=== PATIENT | female | born 1970 | race Caucasian/White ===

== ENCOUNTER 2020-10-17 15:45 | Emergency (ER) | payer OTHER, SELFPAY ==
[2020-10-17 16:00] VITALS: BP 159/93; PULSE 75; RESP 20; TEMP 37.1; O2SAT 99
[2020-10-17] MEDS: TETANUS,DIPHTHERIA,AC PERTUSSIS ADULT 0.5 ML (ADACEL) (16:30)
--- NOTE | 2020-10-17 16:48 | ED.WOUNDLAC ---
HPI - Wound/Laceration General Chief Complaint: Wound/Laceration Stated Complaint: Cut ring finger left hand Source: patient Mode of arrival: ambulatory Limitations: no limitations History of Present Illness HPI narrative: this is a 50-year-old female who presents after she was trying to cut a avocado to make toast earlier today and denies cut at the base of her 3rd and 4th finger hand or palm causing a mildly gaping laceration of 2cm initially debrided currently no bleeding with good range of motion in her fingers with some mild numbness at the tip of her left 2nd finger. Onset (ago): hour(s) Location: other ( Hand) Extremity Location: Left: hand ( laceration between the the palm & finger) Place: home Patient tetanus UTD: No Context: accidental Associated symptoms: none Related Data Home Medications Medication Instructions Recorded Confirmed No Home Medications 10/17/20 10/17/20 Allergies Allergy/AdvReac Type Severity Reaction Status Date / Time Penicillins AdvReac Unknown Verified 10/17/20 16:09 Review of Systems Review of Systems: All systems reviewed & are unremarkable except as noted in HPI and below PMFSH Past Medical History Medical History Patient denies medical problems Exam Const: General: no acute distress and alert Orientation/consciousness: patient oriented x3 HENMT: Head: normal to inspection Eyes: Conjunctivae: conjunctivae normal Pupils: Equal, round and reactive pupils present Neck: Neck: normal visual inspection Chest: Chest palpation & inspection: normal inspection of the chest Resp: Effort & Inspection: normal respiratory effort Auscultation: clear to auscultation bilaterally GI: GI Palp: Yes Soft to palpation Percussion: Yes normal to percussion Urinary Catheter: Urinary Catheter: patent and draining Skin: Other: 2cm laceration left hand at the base of her 3rd and 4th finger Neuro: General: patient oriented x3 Speech: normal speech Extrem: General: normal to inspection and no pedal edema Psych: Mental Status: mental status grossly normal Course Course Emergency Course: laceration examined I irrigated and placed Dermabond on. Vital Signs Vital signs: Vital Signs Temperature 37.1 C 10/17/20 16:00 Pulse Rate 75 10/17/20 16:00 Respiratory Rate 20 10/17/20 16:00 Blood Pressure 159/93 H 10/17/20 16:00 Pulse Oximetry 99 10/17/20 16:00 Temperature 37.1 C 10/17/20 16:00 Pulse Rate 75 10/17/20 16:00 Respiratory Rate 20 10/17/20 16:00 Blood Pressure 159/93 H 10/17/20 16:00 Pulse Oximetry 99 10/17/20 16:00 Procedures Laceration Laceration 1: Date: 10/17/20 Time: 16:51 Site: hand Side (If applicable): left Size (cm): 2 Description: linear Pre-repair: wound explored and irrigated ====== Skin Level ====== Skin layer closed with: dermabond ====== Subcutaneous Layer ====== ====== Muscle Layer ====== ====== Tendon Layer ====== Critical Care Time Critical Care Time Critical Care Time: No Discharge Plan Discharge Clinical Impression: Laceration Patient Disposition: Home, Self-Care Condition: Stable Instructions: Antibiotic Form, Laceration (ED), Skin Adhesive Care (ED) Additional Instructions: Follow-up with primary care physician if symptoms persist or worsen. Prescriptions: No Action No Home Medications RF: 0 Follow-up/Referrals: Cyrus Marquis MD [Primary Care Provider] - Time of Disposition: 16:53
[2020-10-17 16:53] VITALS: BP 148/84; PULSE 75; RESP 20; TEMP 36.9; O2SAT 97
== END 2020-10-17 16:55 | disposition home or self-care (01) ==
PROVIDERS: Emergency Provider Emergency Medicine; PCP Internal Medicine
DX: S61.215A Laceration without foreign body of left ring finger without damage to nail, initial encounter (principal); W45.8XXA Other foreign body or object entering through skin, initial encounter
CPT/HCPCS: 12001; 90471; 90715; 99282